=== PATIENT | female | born 1980 | race Caucasian/White ===

== ENCOUNTER 2022-11-08 15:24 | Outpatient (CLI) | payer BC ==
[~2022-11-08 15:24] MED LIST: Iopamidol 300 61% 100 ML VIAL FS ONE
== END 2022-11-08 15:25 | disposition home or self-care (01) ==
LOC: CSHCT 15:24
PROVIDERS: ATTEND Nurse Practitioner Adult Health
DX: R50.9 Fever, unspecified (principal); R59.1 Generalized enlarged lymph nodes; M25.541 Pain in joints of right hand; M25.542 Pain in joints of left hand; R53.83 Other fatigue; I42.9 Cardiomyopathy, unspecified
CPT/HCPCS: 70491; Q9967